=== PATIENT | male | born 1980 | race Caucasian/White ===

== ENCOUNTER 2021-03-29 09:59 | Emergency (ER) | payer OTHER, SELFPAY ==
--- NOTE | ~2021-03-29 | XR_ITS ---
EXAMINATION: XR chest 2V CLINICAL INFORMATION: Cough COMPARISON: No prior chest x-ray available in our system for comparison at the time of this dictation. TECHNIQUE: XR chest 2V Lungs and Xi: Both lungs are clear. Pleura: Normal. Costophrenic angles are sharp. No pneumothorax. Heart: The heart is normal in size. Mediastinum: The mediastinum is within normal limits.. Bones: Skeletal structures included are normal for patient's age. XR/XR chest 2V IMPRESSION: Normal chest x-ray.
[2021-03-29 10:30] LABS: COVID-19 Test Negative (Negative)
[2021-03-29 11:55] VITALS: BP 145/103; PULSE 75; RESP 18; TEMP 36.8; O2SAT 100; BMI 37.1
--- NOTE | 2021-03-29 12:08 | ED.URI ---
HPI - URI/Sore Throat General Chief Complaint: Upper Respiratory Symptoms Stated Complaint: flu symptons fever Time Seen by Provider: 03/29/21 11:59 Source: patient Mode of arrival: ambulatory Limitations: no limitations History of Present Illness HPI Narrative: 40 y/o male presenting to the ER from home c/o generalized fatigue, dry cough and pain with breathing for the last 3 or 4 days. He reports the pain is worse when coughing. The pain is located along his entire chest wall. He denies any fevers, shortness of breath, nausea, vomiting, or diarrhea. No known sick contacts. is fully vaccinated against COVID-19. He has been avoiding coming to the emergency room but his family encouraged him to come to the ER for evaluation. MD elicited complaint: cough Onset (ago): day(s) (For) Consistency: intermittent Severity: moderate Description of mucous: yellow Able to tolerate fluids by mouth: Yes Exacerbating factors: other (Worse at night) Relieving factors: OTC cold medicine Associated symptoms: headache, nasal congestion and cough Treatments prior to arrival: none Related Data Previous Rx's Medication Instructions Recorded azithromycin 250 mg tablet See Rx Instructions .ROUTE 03/29/21 (Zithromax Z-Darryl) .COMPLEX #6 tab hydrocodone-homatropine 5 mg-1.5 5 ml PO Q6H PRN #60 ml 03/29/21 mg/5 mL (5 mL) oral syrup (Hycodan) prednisone 20 mg tablet 40 mg PO DAILY #10 tab 03/29/21 Allergies Allergy/AdvReac Type Severity Reaction Status Date / Time No Known Allergies Allergy Verified 03/29/21 11:57 [No Known Allergies*] Review of Systems Review of Systems: Constitutional: No Fever, No Chills ENT/Mouth: No sore throat, No Rhinorrhea, No Swallowing Difficulty Cardiovascular: No Chest Pain, No SOB, No Orthopnea, No Edema Respiratory: + Cough, + Sputum, No Wheezing, No dyspnea Gastrointestinal: No Nausea, No Vomiting, No Diarrhea, No abdominal Pain Musculoskeletal: No joint pain, No Myalgias Skin: No Skin Lesions, No rash Neuro: + Weakness, No Numbness, No Dizziness, + Headache Heme/Lymph: No Lymphadenopathy PMFSH Past Medical History Medical History (Updated 03/29/21 @ 13:21 by SUZANNE Guerrero) No known health problems Social History Social History Advance Directives: No Advance Directives Information Provided: Yes Physical Exam Vital Signs: Vital Signs: Last Vital Signs Temp 98.3 F 03/29/21 11:55 Pulse 75 03/29/21 11:55 Resp 18 03/29/21 11:55 BP 145/103 H 03/29/21 11:55 Pulse Ox 100 03/29/21 11:55 Body Mass Index 37.1 Appearance: Alert. Oriented X3. No acute distress. Eyes: Pupils equal, round and reactive to light. ENT: Pharynx normal. No tonsillar exudates or swelling, uvula is midline. Clear nasal discharge. Neck: Normal inspection. Neck supple. CVS: Normal heart rate and rhythm. Pulses normal. Respiratory: No respiratory distress. Breath sounds normal. Congested cough is noted. Skin: Skin warm and dry. Normal skin color. Normal skin turgor. No rashes. Extremities: No lower extremity edema. No calf tenderness Neuro: Oriented X 3. Grossly normal Course Course Course Narrative: 40-year-old male presenting to the ER with cough with associated chest discomfort for the last 3 or 4 days. He has signs and symptoms of an upper respiratory tract infection. He is fully vaccinated against COVID. His vital signs are normal on exam is unremarkable. He is in no distress. Will get chest x-ray ankle itself for further evaluation Reevaluation(s) Reevaluation #1: And COVID test is negative. Will treat for acute bronchitis and have him follow-up with his primary care doctor. Patient agrees with plan and is stable for discharge home. MDM - URI/Sore Throat Lab Data Labs: Lab Results 03/29/21 Range/Units 10:11 COVID-19 ([facility]) Negative (Negative) COVID-19 Clin Com See Note Critical Care Time Critical Care Time Critical Care Time: No Discharge Plan Discharge Clinical Impression: Bronchitis Patient Disposition: Home, Self-Care Instructions: Acute Bronchitis (ED) Additional Instructions: You tested negative for COVID today. Chest x-ray was negative for pneumonia. Rest and drink plenty of fluids. Take over the counter cold/flu medications as needed for your symptoms. Follow up with your doctor this week. Prescriptions: New azithromycin [Zithromax Z-Darryl] 250 mg tablet See Rx Instructions .ROUTE .COMPLEX Qty: 6 RF: 0 prednisone 20 mg tablet 40 mg PO DAILY Qty: 10 RF: 0 hydrocodone-homatropine [Hycodan] 5-1.5 mg/5 mL (5 mL) syrup 5 ml PO Q6H PRN (Reason: cough) Qty: 60 RF: 0 Stand Alone Forms: Work/School Release Interventions: ED Discharge Assessment Last Done: 03/29/21 13:33 Discharge Date/Time: 03/29/21 13:33
== END 2021-03-29 13:33 | disposition home or self-care (01) ==
PROVIDERS: Emergency Provider Internal Medicine
DX: J20.8 Acute bronchitis due to other specified organisms (principal); R50.9 Fever, unspecified; Z20.822 Contact with and (suspected) exposure to COVID-19; Z79.899 Other long term (current) drug therapy
CPT/HCPCS: 36415; 71046; 87635; 99283

== ENCOUNTER 2021-05-25 17:49 | Emergency (ER) | payer MEDICAID, SELFPAY ==
--- NOTE | ~2021-05-25 | XR_ITS ---
EXAMINATION: XR CHEST CLINICAL INFORMATION: Cough COMPARISON: Chest x-ray 03/29/2021 TECHNIQUE: Frontal view of the chest was obtained. FINDINGS: Cardiac silhouette is normal in size. The lungs are well aerated. There is no lobar consolidation. No pleural effusion or pneumothorax. No gross osseous abnormality. XR/XR chest 1V IMPRESSION: Stable examination demonstrating no acute pulmonary pathology.
[2021-05-25 18:05] VITALS: BP 168/99; PULSE 88; RESP 18; TEMP 36.7; O2SAT 98; BMI 40.3
[2021-05-25 20:17] VITALS: BP 145/100; PULSE 78; RESP 18; TEMP 36.7; O2SAT 99
[2021-05-25 20:36] LABS: COVID-19 Test Negative (Negative); IDNOW Serial# 9DD0AD1C
--- NOTE | 2021-05-25 21:02 | ED_ITS ---
HPI - URI/Sore Throat General Chief Complaint: Upper Respiratory Symptoms Stated Complaint: flu like Source: patient Mode of arrival: ambulatory Limitations: no limitations History of Present Illness HPI Narrative: 40-year-old male presents to ED for COVID exposure and COVID like symptoms. Patient states cough, body aches, and chills the past 2 days. Patient states he was handling his friend 2 days ago called him today and let him know that he tested positive for COVID. Patient denies any chest pain or shortness of breath. MD elicited complaint: cough Related Data Previous Rx's Medication Instructions Recorded azithromycin 250 mg tablet See Rx Instructions .ROUTE 03/29/21 (Zithromax Z-Darryl) .COMPLEX #6 tab hydrocodone-homatropine 5 mg-1.5 5 ml PO Q6H PRN #60 ml 03/29/21 mg/5 mL (5 mL) oral syrup (Hycodan) prednisone 20 mg tablet 40 mg PO DAILY #10 tab 03/29/21 Allergies Allergy/AdvReac Type Severity Reaction Status Date / Time No Known Allergies Allergy Verified 05/25/21 18:04 [No Known Allergies*] Review of Systems Review of Systems: Yes all other systems are reviewed and are negative Constitutional: Constitutional: Reports as per HPI, Reports no additional constitutional complaints, Reports body ache(s) and Reports chills Eyes: Eyes: Reports as per HPI and Reports no additional eye complaints ENT: Reports system reviewed and no additional complaints, except as documented and Reports as per HPI Cardiovascular: Cardiovascular: Reports as per HPI and Reports no additional cardiovascular complaints Respiratory: Respiratory: Reports as per HPI, Reports no additional respiratory complaints and Reports cough Gastrointestinal: Gastrointestinal: Reports as per HPI and Reports no additional gastrointestinal complaints Genitourinary: Genitourinary: Reports no additional male genitourinary complaints and Reports as per HPI Musculoskeletal: Musculoskeletal: Reports no additional musculoskeletal complaints and Reports as per HPI Neurologic: Reports system reviewed and no additional complaints, except as documented and Reports as per HPI Psychiatric: Psychiatric: Reports no additional psychiatric complaints and Reports as per HPI [facility] Past Medical History Medical History (Updated 05/26/21 @ 00:02 by Background [place]) No known health problems Social History Social History Advance Directives: No Advance Directives Information Provided: Yes Physical Exam Vital Signs: Vital Signs: Last Vital Signs Temp 98.0 F 05/25/21 20:17 Pulse 78 05/25/21 20:17 Resp 18 05/25/21 20:17 BP 145/100 H 05/25/21 20:17 Pulse Ox 99 05/25/21 20:17 Body Mass Index 40.3 Const: General: cooperative, healthy appearing, comfortable and no acute distress Orientation/consciousness: patient oriented x3 HENMT: Head: Yes normal to inspection, Yes No palpable skull fracture present, Yes normocephalic, Yes atraumatic and No abrasion Ears: hearing grossly normal bilaterally, external ears normal, TM's normal bilaterally, EAC's normal, mastoids normal and no periauricular adenopathy Throat: Yes posterior oropharynx normal, Yes tonsils normal and Yes uvula midline Eyes: General: appearance normal, both eyes and all related structures Neck: Neck: Yes normal visual inspection, Yes full ROM, Yes no lymphadenopathy, Yes no meningeal signs, Yes trachea midline, Yes supple, No anterior neck swelling and No tender Chest: Chest palpation & inspection: normal inspection of the chest and normal palpation of entire chest wall Resp: Effort & Inspection: normal respiratory effort and able to speak in complete sentences Auscultation: clear to auscultation bilaterally Cardio: Jugular venous distension: no JVD Heart sounds: S1 normal heart sound present and S2 normal heart sound present GI: Inspection: Yes normal to inspection and No abdominal wall ecchymosis Palpation (GI): Soft to palpation, not firm, nontender, no guarding and not rigid : General: No CVA tenderness and Yes no CVA tenderness Back/Spine/Pelvis: Back: no CVA tenderness, No CVA tenderness and No back tenderness Skin: General skin exam: no rashes or lesions noted and elasticity normal Neuro: General: patient oriented x3, gait normal, no meningeal signs and CN's II-XI intact bilaterally Cranial nerves: Yes CN's II-XII intact bilaterally Extrem: General: Yes normal to inspection and Yes full ROM Psych: Appearance: grossly normal, well kempt and not disheveled Course Course Course Narrative: COVID swab chest x-ray ordered Reevaluation(s) Reevaluation #1: COVID chest x-ray came back normal. Patient informed of his elevated blood pressure and told to follow-up with his primary care provider to follow-up on his blood pressure. Time: 21:23 MDM - URI/Sore Throat MDM Narrative Medical decision making narrative: URI. Viral syndrome Lab Data Labs: Lab Results 05/25/21 Range/Units 20:15 COVID-19 ([facility]) Negative (Negative) COVID-19 Clin Com See Note Discharge Plan Discharge Clinical Impression: Upper respiratory infection, Viral syndrome Patient Disposition: Home, Self-Care Instructions: Upper Respiratory Infection (ED), Viral Syndrome (ED) Additional Instructions: Your COVID swab came back negative. This may be a false negative due to recent exposure. Recommend retesting in 72 hours if symptoms are not improved. Return to the ED immediately for any chest pain, shortness of breath, swelling of lower extremities, coughing up blood, calf pain, weakness, dizziness, or any other concerning symptoms. Please follow-up with primary care provider Prescriptions: No Action azithromycin [Zithromax Z-Darryl] 250 mg tablet See Rx Instructions .ROUTE .COMPLEX Qty: 6 RF: 0 prednisone 20 mg tablet 40 mg PO DAILY Qty: 10 RF: 0 hydrocodone-homatropine [Hycodan] 5-1.5 mg/5 mL (5 mL) syrup 5 ml PO Q6H PRN (Reason: cough) Qty: 60 RF: 0 Stand Alone Forms: Work/School Release Interventions: ED Discharge Assessment Last Done: 05/25/21 21:35 Discharge Date/Time: 05/25/21 21:37 Print Language: Sammarinese
== END 2021-05-25 21:37 | disposition home or self-care (01) ==
PROVIDERS: Emergency Provider Emergency Medicine
DX: B34.9 Viral infection, unspecified (principal); M79.10 Myalgia, unspecified site; J06.9 Acute upper respiratory infection, unspecified; Z20.822 Contact with and (suspected) exposure to COVID-19; Z79.899 Other long term (current) drug therapy
CPT/HCPCS: 36415; 71045; 87635; 99283; 99284

== ENCOUNTER 2021-07-12 08:50 | Emergency (ER) | payer MEDICAID, SELFPAY ==
[2021-07-12 09:12] VITALS: BP 153/108; PULSE 84; RESP 16; TEMP 36.1; O2SAT 98; BMI 39.5
--- NOTE | 2021-07-12 09:19 | ED.URI ---
HPI - URI/Sore Throat General Chief Complaint: Upper Respiratory Symptoms Stated Complaint: covid symptoms Time Seen by Provider: 07/12/21 09:02 Source: patient Mode of arrival: ambulatory Limitations: no limitations History of Present Illness HPI Narrative: 40-year-old male presents to the emergency department with COVID like symptom experiencing body aches, dry cough with associated chest wall pain when coughing, congestion malaise subjective fevers and chills since this morning. He tells me he has chest discomfort only when he coughs, not when he is not coughing. He tells me both of his daughters are sick with COVID at home. He is a current daily smoker. He is vaccinated with Pfizer x3.?Denies SOB, CP, BEAULIEU, weakness. Eating and drinking well. In good spirits. No other complaints at this time. Patient has no significant cardiac history. MD elicited complaint: fever (Subjective), cough (Dry), sore throat and nasal congestion Onset (ago): day(s) (1) Consistency: constant Severity: mild Able to tolerate fluids by mouth: Yes Exacerbating factors: nothing Relieving factors: nothing Context: sick contacts (Two daughters sick at home with COVID-19.) Associated symptoms: fever, chills, myalgias, sore throat and cough Treatments prior to arrival: none Related Data Previous Rx's Medication Instructions Recorded azithromycin 250 mg tablet See Rx Instructions .ROUTE 03/29/21 (Zithromax Z-Darryl) .COMPLEX #6 tab hydrocodone-homatropine 5 mg-1.5 5 ml PO Q6H PRN #60 ml 03/29/21 mg/5 mL (5 mL) oral syrup (Hycodan) prednisone 20 mg tablet 40 mg PO DAILY #10 tab 03/29/21 benzonatate 100 mg capsule 100 mg PO BID PRN #20 cap 07/12/21 Allergies Allergy/AdvReac Type Severity Reaction Status Date / Time No Known Allergies Allergy Verified 05/25/21 18:04 [No Known Allergies*] Review of Systems Review of Systems: Constitutional : positive Fever, positive Chills, positive fatigue, positive Malaise ENT/Mouth : positive sore throat, No runny nose Eyes: No Discharge Cardiovascular : No Chest Pain, No SOB Respiratory : No Cough, No Sputum Gastrointestinal : No Nausea, No Vomiting, No Diarrhea Genitourinary : No Dysuria, No Urinary Frequency Musculoskeletal : positive Myalgia Skin : No rash Neuro : No Headache Yes all other systems are reviewed and are negative [facility] Past Medical History Attestation statement: The following information was validated with the patient. Source: old records reviewed and nursing notes reviewed Medical History No known health problems Physical Exam Vital Signs: Vital Signs: Last Vital Signs Temp 97 F 07/12/21 09:12 Pulse 84 07/12/21 09:12 Resp 16 07/12/21 09:12 BP 153/108 H 07/12/21 09:12 Pulse Ox 98 07/12/21 09:12 BMI result Body Mass Index 39.5 Patient is noted to be hypertensive. I discussed this finding with the patient and told him to follow-up with his PCP all other vitals signs stable saturating well on room air. Appearance: Alert.? Oriented X3.? No acute distress.? Head: Normocephalic, atraumatic, no step-offs or deformities Eyes: Pupils equal, round and reactive to light.? Neck: Normal inspection.? Neck supple.? CVS: Normal heart rate and rhythm.? Pulses normal.? Respiratory: No respiratory distress.? Breath sounds normal.? Abdomen: Soft and nontender.? Skin: Skin warm and dry.? Normal skin color.? Normal skin turgor.? Extremities: No lower extremity edema.? No calf ttp. 5/5 strength to bilateral upper and lower extremities Neuro: Oriented X 3.? No motor deficit.? No sensory deficit. Course Reevaluation(s) Reevaluation #1: Patient is noted to be COVID negative. However, since everyone at home is sick it is likely too soon to test. I have advised patient to get retested in 2-4 days. I have also told him to treat this as if he were positive and to self isolate, social distance and clean thoroughly. Vital signs are stable.? I have given patient strict return precautions.? I have educated on diagnosis and treatment plan.? I have given them red flag symptoms and have told him to return with new or worsening symptoms.? I have outlined these on their discharge. Unlikely that this is ACS, patient denies chest pain, normal EKG. Lungs are clear unlikely pneumonia patient also doesnt have a productive cough. Patient's vital signs stable, patient is not tachycardic, tachypneic or hypoxic, no calf tenderness to palpation, unlikely PE. Time: 09:52 MDM - URI/Sore Throat MDM Narrative Medical decision making narrative: 921 40 yo M presents with COVID like symptoms. Requesting an test. Daughters at home sick. Vaccinated with Pfizer x3. Current daily smoker. No significant medical history. Physical exam benign Plan COVID test Medical Records Attestation: I reviewed the patient's medical records. Lab Data Attestation: I reviewed the patient's lab results. Labs: Lab Results 07/12/21 Range/Units 09:16 COVID-19 ([facility]) Negative (Negative) COVID-19 Clin Com See Note ECG Data Attestation: I personally reviewed and interpreted this ECG as follows: ECG interpretation date: 07/12/21 ECG interpretation time: 10:01 Prior ECG tracings: available for review Interpretation: Ventricular rate of 74, KS normal, QRS normal, QT/QTC normal. EKG shows sinus rhythm with marked arrhythmia. No ST elevations or inversions concerning for ischemia. No previous EKGs to compare with. Critical Care Time Critical Care Time Critical Care Time: No Discharge Plan Discharge Clinical Impression: Upper respiratory virus Patient Disposition: Home, Self-Care Instructions: COVID-19 (Coronavirus Disease 2019) (ED) Additional Instructions: Take your medications as prescribed. If you were prescribed antibiotics today, it is important that you take your medication to their entirety, do not skip any doses, do not finish them early. Today you tested negative for COVID-19, however since her symptoms started this morning it is likely that the test is not sensitive enough to catch the virus this early on. Take Ibuprofen or Tylenol as needed for fevers or body aches. Quarantine for 5 days and ensure you wear a mask. After 5 days you should wear a mask for 5 days after that. Practice social distancing and good hand hygiene. Drink plenty of fluids. If you want, you can retest in 2-4 days. Follow-up with your primary care provider this week. Return to the emergency department with new or worsening symptoms. In case of emergency call 911 You can purchase a pulse oximeter from your local pharmacy or grocery store, and monitor your oxygen saturation if it goes below 94% you should return to the emergency department for further evaluation. Prescriptions: New benzonatate 100 mg capsule 100 mg PO BID PRN (Reason: cough) Qty: 20 RF: 0 No Action azithromycin [Zithromax Z-Darryl] 250 mg tablet See Rx Instructions .ROUTE .COMPLEX Qty: 6 RF: 0 prednisone 20 mg tablet 40 mg PO DAILY Qty: 10 RF: 0 hydrocodone-homatropine [Hycodan] 5-1.5 mg/5 mL (5 mL) syrup 5 ml PO Q6H PRN (Reason: cough) Qty: 60 RF: 0 Referrals: Physician,None [Primary Care Provider] - 2 days Stand Alone Forms: Work/School Release
[2021-07-12 09:41] LABS: COVID-19 Test Negative (Negative)
--- NOTE | 2021-07-12 09:51 | ECG_ITS ---
Test Reason : chest tightness Blood Pressure : / mmHG Vent. Rate : 074 BPM Atrial Rate : 074 BPM P-R Int : 158 ms QRS Dur : 098 ms QT Int : 394 ms P-R-T Axes : 056 026 047 degrees QTc Int : 437 ms Sinus rhythm with marked sinus arrhythmia Otherwise normal ECG No previous ECGs available Referred By: Neisha Angeles Electronically Signed By:Ashu Ruvalcaba
== END 2021-07-12 10:06 | disposition home or self-care (01) ==
LOC: HO.ED 10:02
PROVIDERS: Physician Assistant; Emergency Provider Emergency Medicine
DX: J06.9 Acute upper respiratory infection, unspecified (principal); M79.10 Myalgia, unspecified site; R05.9 Cough, unspecified; R07.89 Other chest pain; R50.9 Fever, unspecified; Z20.822 Contact with and (suspected) exposure to COVID-19
CPT/HCPCS: 87635; 93005; 99284

== ENCOUNTER 2021-07-15 09:37 | Outpatient (REF) | payer MEDICAID, SELFPAY ==
[2021-07-15 10:02] LABS: COVID-19 Test Negative (Negative)
== END 2021-07-15 09:38 | disposition home or self-care (01) ==
LOC: HO.LAB 09:37
PROVIDERS: Visit Provider Internal Medicine
DX: Z20.822 Contact with and (suspected) exposure to COVID-19 (principal)
CPT/HCPCS: 87635; C9803

== ENCOUNTER 2021-12-17 06:50 | Emergency (ER) | payer MEDICAID, SELFPAY ==
--- NOTE | ~2021-12-17 | CT_ITS ---
EXAMINATION: CT CERVICAL SPINE WITHOUT CONTRAST CLINICAL INFORMATION: Neck pain status post trauma. COMPARISON: None TECHNIQUE: Multiple axial images of the cervical spine were obtained without the administration of intravenous contrast. Coronal and sagittal reformatted images were obtained. This CT examination was performed using dose optimization techniques as appropriate, variously including the following: *Automated exposure control *Adjustment of mA and/or kV according to patient size (this includes techniques or standardized protocols for targeted exams where dose is matched to indication/reason for exam; i.e. extremities or head) *Use of iterative reconstruction technique DLP: 724.86 mGy-cm FINDINGS: There is normal cervical lordosis and spinal alignment. Mild degenerative disc disease is seen in C6-C7. The vertebral bodies are intact. The neural foramina are patent. The facet joints are unremarkable. The spinous processes are intact. The odontoid process is intact with mild articular degenerative changes. The soft tissues are unremarkable. There is no lymphadenopathy. The thyroid gland is unremarkable. The visualized lung apices are clear. CT/CT cervical spine wo con IMPRESSION: 1. No acute abnormality. 2. C6-C7 mild degenerative disc disease. Fleischner guidelines were followed.
--- NOTE | ~2021-12-17 | CT_ITS ---
EXAMINATION: CT HEAD WITHOUT CONTRAST CLINICAL INFORMATION: Head pain status post trauma. COMPARISON: None TECHNIQUE: Contiguous axial imaging was performed from the skull base to vertex without intravenous administration of contrast. Coronal and sagittal reformatted images were obtained. This CT examination was performed using dose optimization techniques as appropriate, variously including the following: *Automated exposure control *Adjustment of mA and/or kV according to patient size (this includes techniques or standardized protocols for targeted exams where dose is matched to indication/reason for exam; i.e. extremities or head) *Use of iterative reconstruction technique DLP: 762.82 mGy-cm FINDINGS: Encephalomalacia seen in the left frontal lobe in the distribution of the left anterior cerebral artery without hemorrhagic component. There is no mass effect or midline shift. The cortical sulci are normal. The lateral ventricles are symmetrical. The third and fourth ventricles are in their normal midline position. The basilar and prepontine cisterns are unremarkable. Sections through the bony calvarium are unremarkable. The paranasal sinuses show mild mucosal thickening anteromedially in the right maxillary sinus. This partially occludes the right ostiomeatal complex. The bony orbits and orbital contents are unremarkable. Mild deformity seen in the right nasal bone. Mild anterior nasal septal deviation, apex to the right is seen. 1. 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 Correlate with patient history and possible associated deficits. If the patient is presenting acute symptoms, MRI should be considered. 2. Deformity in the right nasal bone suggests an acute nondisplaced fracture. Mild mucosal thickening in the subjacent right maxillary sinus is seen without definitive associated fracture. This could be reactive to the trauma given the proximity.
[2021-12-17 07:05] VITALS: BP 151/97; PULSE 80; RESP 16; TEMP 36.5; O2SAT 97; BMI 35.2
--- NOTE | 2021-12-17 08:10 | ED_ITS ---
HPI - Head Injury General Chief complaint: Head Injury Stated complaint: work inj, head lac Time Seen by Provider: 12/17/21 08:09 Source: patient Mode of arrival: ambulatory History of Present Illness HPI Narrative: 40-year-old male with unknown last tetanus shot who was struck in the right side of the head with a Pallet while at work without loss of consciousness. The patient otherwise denies any visual/auditory/speech difficulties. Related Data Previous Rx's Medication Instructions Recorded azithromycin 250 mg tablet See Rx Instructions PO .COMPLEX #6 03/29/21 (Zithromax Z-Darryl) tabs hydrocodone-homatropine 5 mg-1.5 5 ml PO Q6H PRN cough #60 mL 03/29/21 mg/5 mL (5 mL) oral syrup (Hycodan) prednisone 20 mg tablet 40 mg PO DAILY #10 tabs 03/29/21 benzonatate 100 mg capsule 100 mg PO BID PRN cough #20 caps 07/12/21 Allergies Allergy/AdvReac Type Severity Reaction Status Date / Time No Known Allergies Allergy Verified 05/25/21 18:04 [No Known Allergies*] Review of Systems Review of Systems: Pertinent positives and negatives as stated in HPI 10 point review of systems is otherwise negative. PMFSH Past Medical History Source: nursing notes reviewed Medical History No known health problems Social History Social History Advance Directives: No Advance Directives Information Provided: No Physical Exam Vital Signs: Vital Signs: Last Vital Signs Temp 97.7 F 12/17/21 07:05 Pulse 80 12/17/21 07:05 Resp 16 12/17/21 07:05 BP 151/97 H 12/17/21 07:05 Pulse Ox 97 12/17/21 07:05 O2 Del Method 12/17/21 07:05 BMI result Body Mass Index 35.2 VITAL SIGNS: Reviewed. GENERAL: Well developed, well nourished, in no acute distress. HEAD: Normocephalic/3cm linear superficial scalp laceration to the right parietal EYES: PERRLA, EOMI EARS: Ext canals without abnormality OROPHARYNX: no oral lesions noted, posterior pharynx clear LUNGS: Normal breath sounds. No adventitious sounds or accessory muscle use. SpO2<97> CARDIOVASCULAR: Regular rate and rhythm without noted murmurs ABDOMEN: Soft, non-tender, non-distended with bowel sounds. MUSCULOSKELETAL: No tenderness, deformities, or effusions noted on gross inspection. EXTREMITIES: No cyanosis, clubbing or edema. SKIN: Inspection of the skin reveals no rashes NEUROLOGIC: Alert and oriented x 4. Strength and sensation to light touch were grossly intact x 4. Course Course Course Narrative: 40-year-old male with history and clinical presentation consistent with being struck in the head at work without loss of consciousness, patient will receive CT of the head/cervical spine as well as a tetanus shot and get etta for the scalp laceration. Patient received 3 etta with good hemostasis and was discharged home in stable condition. Procedures Laceration Laceration 1: Site: scalp Side (If applicable): right Size (cm): 3 Description: linear Depth: simple, single layer Pre-repair: wound explored, irrigated extensively and deep structures intact Discharge Plan Discharge Clinical Impression: Closed head injury, Laceration of scalp Patient Disposition: Home, Self-Care Instructions: Head Injury (ED), Laceration (ED), Staple Care (ED) Additional Instructions: 1. Remove the etta in 7 days. May gently cleanse with soap and water and then dry. 2. Recommend [id number] Tylenol/ibuprofen as needed for pain control. 3. Follow-up with your primary care provider in the next 2-3 days for re- evaluation. Return to the ER for any worsening symptoms. Prescriptions: No Action benzonatate 100 mg capsule 100 mg PO BID PRN (Reason: cough) Qty: 20 0RF azithromycin [Zithromax Z-Darryl] 250 mg tablet See Rx Instructions .ROUTE .COMPLEX Qty: 6 0RF Rx Instructions: take 500 mg today (day 1), then 250 mg for 4 days (days 2-5) prednisone 20 mg tablet 40 mg PO DAILY Qty: 10 0RF hydrocodone-homatropine [Hycodan] 5-1.5 mg/5 mL (5 mL) syrup 5 ml PO Q6H PRN (Reason: cough) Qty: 60 0RF Stand Alone Forms: Work/School Release
[2021-12-17] MEDS: Acetaminophen 325 MG TABLET 975 MG PO (08:27)
[2021-12-17] MEDS: Diphth,Pertus(ACell),Tet Adult 0.5 ML SYRINGE IM (08:28)
[2021-12-17] MEDS: Ketorolac Tromethamine 15 MG/ML VIAL IM (08:28)
== END 2021-12-17 09:31 | disposition home or self-care (01) ==
PROVIDERS: Emergency Provider Student in an Organized Health Care Education/Training Program
DX: S01.01XA Laceration without foreign body of scalp, initial encounter (principal); S09.90XA Unspecified injury of head, initial encounter; W22.8XXA Striking against or struck by other objects, initial encounter; Y93.9 Activity, unspecified; Y92.9 Unspecified place or not applicable; Y99.0 Civilian activity done for income or pay
CPT/HCPCS: 12002; 70450; 72125; 90471; 90715; 96372; 99283; 99284; J1885

== ENCOUNTER 2021-12-23 16:49 | Emergency (ER) | payer MEDICAID, SELFPAY ==
[2021-12-23 16:53] VITALS: BP 142/93; PULSE 92; RESP 17; TEMP 36.3; O2SAT 98; BMI 34.4
--- NOTE | 2021-12-23 17:09 | ED.GENADULT ---
HPI - General Adult General Chief complaint: General Medical Stated complaint: need etta removed from head Time Seen by Provider: 12/23/21 17:03 Related Data Previous Rx's Medication Instructions Recorded azithromycin 250 mg tablet See Rx Instructions PO .COMPLEX #6 03/29/21 (Zithromax Z-Darryl) tabs hydrocodone-homatropine 5 mg-1.5 5 ml PO Q6H PRN cough #60 mL 03/29/21 mg/5 mL (5 mL) oral syrup (Hycodan) prednisone 20 mg tablet 40 mg PO DAILY #10 tabs 03/29/21 benzonatate 100 mg capsule 100 mg PO BID PRN cough #20 caps 07/12/21 Allergies Allergy/AdvReac Type Severity Reaction Status Date / Time No Known Allergies Allergy Verified 05/25/21 18:04 [No Known Allergies*] PMFSH Past Medical History Medical History No known health problems Social History Social History Advance Directives: No Advance Directives Information Provided: No Physical Exam ED Vital Signs: Vital Signs - 24 hr 12/23/21 16:53 Temperature 97.3 F Pulse Rate 92 Respiratory Rate 17 Blood Pressure 142/93 H Pulse Oximetry 98 Oxygen Delivery Method Room Air BMI result Body Mass Index 34.4 Discharge Plan Discharge Clinical Impression: Encounter for removal of etta Patient Disposition: Home, Self-Care Instructions: Stitches Removal (ED) Prescriptions: No Action benzonatate 100 mg capsule 100 mg PO BID PRN (Reason: cough) Qty: 20 0RF azithromycin [Zithromax Z-Darryl] 250 mg tablet See Rx Instructions .ROUTE .COMPLEX Qty: 6 0RF Rx Instructions: take 500 mg today (day 1), then 250 mg for 4 days (days 2-5) prednisone 20 mg tablet 40 mg PO DAILY Qty: 10 0RF hydrocodone-homatropine [Hycodan] 5-1.5 mg/5 mL (5 mL) syrup 5 ml PO Q6H PRN (Reason: cough) Qty: 60 0RF Referrals: Son Granado MD [Primary Care Provider] - 1 week
--- NOTE | 2021-12-23 17:12 | ED.RECABL ---
HPI - Recheck/Abnormal Lab/Rx General Chief Complaint: General Medical Stated Complaint: need etta removed from head Time Seen by Provider: 12/23/21 17:03 Source: patient Mode of arrival: ambulatory Limitations: no limitations History of Present Illness MD complaint: suture/staple removal Initial visit (ago): day(s) (6) Initial visit for: laceration Returns today for: staple/stitch removal Symptoms since prior visit: no new symptoms Context: planned re-check Associated symptoms: none Related Data Previous Rx's Medication Instructions Recorded azithromycin 250 mg tablet See Rx Instructions PO .COMPLEX #6 03/29/21 (Zithromax Z-Darryl) tabs hydrocodone-homatropine 5 mg-1.5 5 ml PO Q6H PRN cough #60 mL 03/29/21 mg/5 mL (5 mL) oral syrup (Hycodan) prednisone 20 mg tablet 40 mg PO DAILY #10 tabs 03/29/21 benzonatate 100 mg capsule 100 mg PO BID PRN cough #20 caps 07/12/21 Allergies Allergy/AdvReac Type Severity Reaction Status Date / Time No Known Allergies Allergy Verified 05/25/21 18:04 [No Known Allergies*] Review of Systems Review of Systems: Constitutional : No Fever, No Chills, Cardiovascular : No Chest Pain, No SOB Respiratory : No Dyspnea Gastrointestinal : No abdominal pain Musculoskeletal : No Joint Swelling Skin : positive healed skin laceration, no new skin laceration, No Foreign bodies, No rash, No surrounding erythema Neuro : No Weakness, No Numbness/tingling Psych : No SI/HI/thoughts of self injury Yes all other systems are reviewed and are negative [facility] Past Medical History Attestation statement: The following information was validated with the patient. Source: old records reviewed, obtained from family and nursing notes reviewed Medical History No known health problems Social History Social History Advance Directives: No Advance Directives Information Provided: No Physical Exam Vital Signs: Vital Signs: Last Vital Signs Temp 97.3 F 12/23/21 16:53 Pulse 92 12/23/21 16:53 Resp 17 12/23/21 16:53 BP 142/93 H 12/23/21 16:53 Pulse Ox 98 12/23/21 16:53 O2 Del Method 12/23/21 16:53 BMI result Body Mass Index 34.4 vital signs have been reviewed as normal and appeared to be correct. Blood pressure normal Heart rate normal. Respiration rate normal. Temperature normal. Oxygen saturation normal. Appearance: Alert. Oriented X3. No acute distress. Head: Normal external exam. Normocephalic. Atraumatic. Patient with [address] to right side of the head to well-healing wound. No surrounding erythema/fluctuance or signs of infection noted. Eyes: PERRLA. EOMI. Conjunctiva and sclera normal. Eyelids normal. ENT: Pharynx normal. Uvula midline. Moist mucous membranes. Neck: Normal inspection. Neck supple. FROM. CVS: Normal heart rate and rhythm. Respiratory: No respiratory distress. Painless inspiration. Skin: Skin warm and dry. Normal skin color. Normal skin turgor. No rashes/lesions/lacerations noted. Extremities: No lower extremity edema. Extremities exhibit normal range of motion. Extremities nontender. Neuro: Oriented X 3. No motor deficit. No sensory deficit. Reflexes normal. Normal steady gait. No focal neuro deficits noted. Vascular: + radial pulses/+ 2 distal pedal pulses/+2 dorsalis pedis b/l. Normal cap refill. No cyanosis noted to upper extremity nails and lower extremity toes nails. Course Course Course Narrative: Patient now status post staple removal 3 etta were removed. Patient tolerated procedure well. No complications. Will DC home instructions return if any new or worsening symptoms follow up with primary care provider. Patient understands agrees with this plan. MDM - Recheck/Abnormal Lab/Rx Medical Records Attestation: I reviewed the patient's medical records. Discharge Plan Discharge Clinical Impression: Encounter for removal of etta Patient Disposition: Home, Self-Care Instructions: Stitches Removal (ED) Prescriptions: No Action benzonatate 100 mg capsule 100 mg PO BID PRN (Reason: cough) Qty: 20 0RF azithromycin [Zithromax Z-Darryl] 250 mg tablet See Rx Instructions .ROUTE .COMPLEX Qty: 6 0RF Rx Instructions: take 500 mg today (day 1), then 250 mg for 4 days (days 2-5) prednisone 20 mg tablet 40 mg PO DAILY Qty: 10 0RF hydrocodone-homatropine [Hycodan] 5-1.5 mg/5 mL (5 mL) syrup 5 ml PO Q6H PRN (Reason: cough) Qty: 60 0RF Referrals: Son Granado MD [Primary Care Provider] - 1 week
== END 2021-12-23 17:18 | disposition home or self-care (01) ==
PROVIDERS: Emergency Provider Emergency Medicine
DX: Z48.02 Encounter for removal of sutures (principal); S01.91XD Laceration without foreign body of unspecified part of head, subsequent encounter; X58.XXXD Exposure to other specified factors, subsequent encounter
CPT/HCPCS: 99282; 99283

== ENCOUNTER 2022-01-16 12:50 | Emergency (ER) | payer MEDICAID, SELFPAY ==
--- NOTE | 2022-01-16 | ECG_ITS ---
Test Reason : CHEST PAIN Blood Pressure : / mmHG Vent. Rate : 075 BPM Atrial Rate : 075 BPM P-R Int : 164 ms QRS Dur : 098 ms QT Int : 380 ms P-R-T Axes : 059 039 043 degrees QTc Int : 424 ms Normal sinus rhythm with sinus arrhythmia Normal ECG When compared with ECG of 12-JUL-2021 09:55, No significant change was found Referred By: Generic ED Physician Electronically Signed By:Ashu Ruvalcaba
--- NOTE | ~2022-01-16 | CT_ITS ---
EXAMINATION: CT HEAD WITHOUT CONTRAST CLINICAL INFORMATION: Headache. Dizziness. COMPARISON: CT head 12/17/2021 TECHNIQUE: Contiguous axial imaging was performed from the skull base to vertex without intravenous administration of contrast. This CT examination was performed using dose optimization techniques as appropriate, variously including the following: *Automated exposure control *Adjustment of mA and/or kV according to patient size (this includes techniques or standardized protocols for targeted exams where dose is matched to indication/reason for exam; i.e. extremities or head) *Use of iterative reconstruction technique DLP: 708 mGy-cm FINDINGS: There is no evidence of acute intracranial hemorrhage or territorial infarction. No abnormal mass effect or midline shift is seen. Ignacio to white matter differentiation is well preserved. No extra-axial fluid collections are identified. The ventricles are normal in size. 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 The osseous structures and soft tissues are normal. The mastoid air cells and visualized portions of the paranasal sinuses are well aerated. Minimal right nasal bone deformity is redemonstrated. CT/CT head/brain wo con IMPRESSION: No acute intracranial pathology.
--- NOTE | ~2022-01-16 | XR_ITS ---
EXAMINATION: XR CHEST CLINICAL INFORMATION: Shortness of breath COMPARISON: 05/25/2021 TECHNIQUE: 2 views of the chest were obtained. FINDINGS: No significant abnormality is noted involving the heart, lungs, mediastinum, bony thorax or soft tissues. XR/XR chest 2V IMPRESSION: Unremarkable examination.
[2022-01-16 12:53] VITALS: BP 151/108; PULSE 82; RESP 18; TEMP 35.7; O2SAT 98; BMI 34.4
--- NOTE | 2022-01-16 13:26 | ED_ITS ---
HPI - Chest Pain General Chief Complaint: Chest Pain Stated Complaint: Chest Pain High Blood Pressure Time Seen by Provider: 01/16/22 13:25 Source: patient Mode of arrival: ambulatory Limitations: no limitations History of Present Illness HPI narrative: Patient is a 41 year old male presenting to the emergency department today with a headache and chest pain. Patient states that over the last couple of days he has had a headache and felt some chest heaviness. Patient states that he is concerned that his blood pressure is elevated. Patient states that his work place has been very stressful and he would like some time off from there. Patient denies any current dizziness, lightheadedness, abdominal pain, nausea, vomiting, fever, chills, blurry vision, double vision, loss of vision, chest pain, difficulty breathing, shortness of breath, back pain, night sweats, pain with urination, increased urinary frequency, increased urinary urgency, blood in his urine or stool, syncope or a near syncopal episode, recent trauma or falls, bowel incontinence, bladder incontinence, bowel retention, bladder retention, or any other complaints at this time. MD complaint: chest pain Onset (ago): day(s) (2) Pain radiation: none Pain scale (0-10): 0 Relieving factors: nothing Exacerbating factors: nothing Treatment prior to arrival: none Risk Factors Coronary artery disease risk factors: none Thoracic aortic dissection risk factors: none Related Data Previous Rx's Medication Instructions Recorded azithromycin 250 mg tablet See Rx Instructions PO .COMPLEX #6 03/29/21 (Zithromax Z-Darryl) tabs hydrocodone-homatropine 5 mg-1.5 5 ml PO Q6H PRN cough #60 mL 03/29/21 mg/5 mL (5 mL) oral syrup (Hycodan) prednisone 20 mg tablet 40 mg PO DAILY #10 tabs 03/29/21 benzonatate 100 mg capsule 100 mg PO BID PRN cough #20 caps 07/12/21 Allergies Allergy/AdvReac Type Severity Reaction Status Date / Time No Known Allergies Allergy Verified 01/16/22 12:55 [No Known Allergies*] Review of Systems Constitutional: Constitutional: Reports no additional constitutional complaints, Denies chills, Denies fever(s), Reports headache(s) and Denies night sweats Eyes: Eyes: Reports no additional eye complaints, Denies blurry vision, Denies change in vision, Denies diplopia, Denies eye discharge, Denies loss of vision and Denies eye pain ENT: Denies dizziness and Reports headache(s) Cardiovascular: Cardiovascular: Reports no additional cardiovascular complaints, Denies chest pain, Denies lightheadedness, Denies Loss of Cons ciousness and Denies dyspnea Respiratory: Respiratory: Reports no additional respiratory complaints and Denies dyspnea Gastrointestinal: Gastrointestinal: Reports no additional gastrointestinal complaints, Denies abdominal pain, Denies melena, Denies hematochezia, Denies change in bowel habits and Denies change in stool character Genitourinary: Genitourinary: Reports no additional male genitourinary complaints, Denies hematuria, Denies oliguria, Denies difficulty urinating, Denies dysuria, Denies urinary frequency, Denies urinary hesitancy, Denies urinary incontinence and Denies urinary urgency Musculoskeletal: Musculoskeletal: Reports no additional musculoskeletal complaints, Denies numbness and Denies tingling Neurologic: Denies dizziness, Reports headache(s), Denies loss of vision, Denies numbness and Denies tingling Psychiatric: Psychiatric: Reports no additional psychiatric complaints Endocrine: Endocrine: Reports no additional endocrine complaints Hematologic/Lymphatic: Hematologic/Lymphatic: Reports no additional hematologic/lymphatic complaints Allergic/Immunologic: Allergic/Immunologic: Reports no additional all ergic/immunologic complaints [facility] Past Medical History Attestation statement: The following information was validated with the patient. Source: old records reviewed Medical History No known health problems Social History Social History Alcohol intake: current Alcohol intake frequency: a few times a month Alcohol type: beer and hard liquor Patient Tobacco Use Status: Current everyday Tobacco user Use of substances other than those prescribed or required for medical reasons: No Advance Directives: Yes Advance Directives on File: Yes Advance Directives Date on File: 01/16/22 Physical Exam Vital Signs: Vital Signs: Last Vital Signs Temp 97.7 F 01/16/22 17:00 Pulse 71 01/16/22 17:00 Resp 18 01/16/22 17:00 BP 151/96 H 01/16/22 17:00 Pulse Ox 98 01/16/22 17:00 O2 Del Method 01/16/22 17:00 BMI result Body Mass Index 34.4 Const: General: cooperative, no acute distress, alert and awake Nutritional Appearance: well nourished Orientation/consciousness: patient oriented x3 Limitations: no limitations HEENT: Head: Yes normal to inspection and Yes atraumatic Ears: hearing grossly normal bilaterally and external ears normal General nose exam: Normal external nose present, no nasal discharge noted and no epistaxis Face and sinus: Yes normal facial exam, No abrasion and No laceration Mouth: Normal oral and palatal mucosa present, no drooling and no muffled voice Eyes: General: appearance normal, both eyes and all related structures Periorbital: periorbital findings normal Eyelids: Yes eyelids normal Conjunctivae: conjunctivae normal Pupils: Equal, round and reactive pupils present EOM: EOMs intact bilaterally Neck: Neck: Yes normal visual inspection, Yes full ROM and Yes no lymphadenopathy Chest: Chest palpation & inspection: normal inspection of the chest Resp: Effort & Inspection: normal respiratory effort and able to speak in complete sentences Auscultation: clear to auscultation bilaterally Cardio: Rate: regular rate Rhythm: regular rhythm GI: Inspection: Yes normal to inspection Neuro: General: patient oriented x3 and moves all extremities Cranial nerves: Yes Equal, round and reactive pupils present Cognition (Neuro): normal cognition Motor exam (neuro): 5/5 motor strength present throughout Sensory Exam: Normal double simultaneous stimulation for sensation Coordi nation: [id number] test normal Extrem: General: Yes normal to inspection, Yes full ROM and Yes capillary refill normal Psych: Appearance: grossly normal Mental Status: mental status grossly normal Affect: normal affect Attitude: cooperative Thought process: Normal thought process present Thought content: Normal thought content present Insight: Good insight present (Psych) MDM - Chest Pain MDM Narrative Medical decision making narrative: Patient is a 41 year old male presenting to the emergency department today with a headache and resolved chest pain. Patient's physical exam was unremarkable. Patient's blood work was unremarkable. Patient's EKG was unremarkable. Patient's chest x-ray and patient's head CT showed no acute process. I explained my physical exam findings as well as all test results to the patient. I answered all questions asked by the patient. Patient received IM Toradol which he stated helped his symptoms significantly. I stressed the importance of the patient taking his medication as prescribed. I stressed the importance of the patient following up with his primary care provider. I stressed the importance of the patient returning to the emergency department immediately if his symptoms were to worsen or if he were to develop any dizziness, shortness of breath, difficulty breathing, chest pain, blurry vision, loss of vision, nausea, vomiting, abdominal pain, fever, chills, back pain, or any other complaints. Patient verbalized agreement and understanding with this treatment plan and discharge. Differential Diagnosis Differential diagnosis: Likely stable angina Differential diagnosis: headache Medical Records Data Attestation: I reviewed the patient's medical records. Lab Data Attestation: I reviewed the patient's lab results. Result diagrams: 01/16/22 15:11 01/16/22 15:11 Labs: Lab Results 01/16/22 01/16/22 01/16/22 Range/Units 15:11 15:11 15:11 WBC 5.6 (4.8-10.8) X10*3/uL RBC 5.41 (4.60-5.80) X10*6/uL Hgb 14.9 (14.0-18.0) g/dl Hct 44.9 (42.0-52.0) % MCV 83.0 (80.0-98.0) fL MCH 27.5 (27.0-33.0) pg MCHC 33.2 (31.0-36.0) g/dl RDW 13.0 (11.0-16.0) % Plt Count 148 L (160-400) X10*3/uL MPV 11.4 (9.4-12.4) fL Immature Gran % (Auto) 0.2 (0.0-0.4) % Neut % (Auto) 63.8 (45-73) % Lymph % (Auto) 26.1 (20-40) % [place] % (Auto) 8.0 (2-11) % Eos % (Auto) 1.4 (0-4) % Baso % (Auto) 0.5 (0-2) % Lymph # (Auto) 1.5 (1.2-4.9) X10*3/uL [place] # (Auto) 0.5 (0.1-1.2) X10*3/uL Eos # (Auto) 0.1 (0.0-0.4) X10*3/uL Baso # (Auto) 0.0 (0.0-0.2) X10*3/uL Abs Immat Gran (auto) 0.01 (0.00-0.03) X10*3/uL Absolute Neuts (auto) 3.6 (2.0-8.3) x10*3/uL Absolute Nucleated RBC 0.000 (0.0-0.012) X10*3/uL Nucleated RBC % (auto) 0.0 (0.0-0.2) /100WBC Sodium 138 (135-145) mmol/L Potassium 4.0 (3.3-5.1) mmol/L Chloride 107 (96-108) mmol/L Carbon Dioxide 24 (22-29) mmol/L Anion Gap 11 L (12-20) BUN 11 (9-16) mg/dL Creatinine 0.71 (0.5-1.4) mg/dL Estim Creat Clear Calc 155.6 Estimated GFR > 60 Random Glucose 91 (60-115) mg/dL Calcium 8.9 (8.4-10.2) mg/dL Total Bilirubin 0.5 (0.0-1.0) mg/dL AST 54 H (5-37) U/L ALT 63 H (0-40) U/L Alkaline Phosphatase 71 (39-117) U/L Troponin I High Sens < 3.5 (<3.5-35.0) ng/L B-Natriuretic Peptide (<100) pg/mL Total Protein 7.6 (6.5-8.0) g/dL Albumin 4.4 (3.5-5.0) g/dL COVID-19 ([facility]) (Negative) COVID-19 Clin Com 01/16/22 01/16/22 Range/Units 15:11 15:11 WBC (4.8-10.8) X10*3/uL RBC (4.60-5.80) X10*6/uL Hgb (14.0-18.0) g/dl Hct (42.0-52.0) % MCV (80.0-98.0) fL MCH (27.0-33.0) pg MCHC (31.0-36.0) g/dl RDW (11.0-16.0) % Plt Count (160-400) X10*3/uL MPV (9.4-12.4) fL Immature Gran % (Auto) (0.0-0.4) % Neut % (Auto) (45-73) % Lymph % (Auto) (20-40) % [place] % (Auto) (2-11) % Eos % (Auto) (0-4) % Baso % (Auto) (0-2) % Lymph # (Auto) (1.2-4.9) X10*3/uL [place] # (Auto) (0.1-1.2) X10*3/uL Eos # (Auto) (0.0-0.4) X10*3/uL Baso # (Auto) (0.0-0.2) X10*3/uL Abs Immat Gran (auto) (0.00-0.03) X10*3/uL Absolute Neuts (auto) (2.0-8.3) x10*3/uL Absolute Nucleated RBC (0.0-0.012) X10*3/uL Nucleated RBC % (auto) (0.0-0.2) /100WBC Sodium (135-145) mmol/L Potassium (3.3-5.1) mmol/L Chloride (96-108) mmol/L Carbon Dioxide (22-29) mmol/L Anion Gap (12-20) BUN (9-16) mg/dL Creatinine (0.5-1.4) mg/dL Estim Creat Clear Calc Estimated GFR Random Glucose (60-115) mg/dL Calcium (8.4-10.2) mg/dL Total Bilirubin (0.0-1.0) mg/dL AST (5-37) U/L ALT (0-40) U/L Alkaline Phosphatase (39-117) U/L Troponin I High Sens (<3.5-35.0) ng/L B-Natriuretic Peptide < 10 (<100) pg/mL Total Protein (6.5-8.0) g/dL Albumin (3.5-5.0) g/dL COVID-19 ([facility]) Negative (Negative) COVID-19 Clin Com See Note Imaging Data Chest x-ray: Attestation: I personally reviewed and interpreted this imaging study as follows: My impression: No acute process. Radiologist's impression: EXAMINATION: XR CHEST CLINICAL INFORMATION: Shortness of breath COMPARISON: 05/25/2021 TECHNIQUE: 2 views of the chest were obtained. FINDINGS: No significant abnormality is noted involving the heart, lungs, mediastinum, bony thorax or soft tissues. XR/XR chest 2V IMPRESSION: Unremarkable examination. Dictated By: Ted Burris MD Signed By: Electronically signed by Ted Burris MD 01/16/[address] scan - head: Attestation: I personally reviewed and interpreted this imaging study as follows: My impression: No acute process. Radiologist's impression: EXAMINATION: CT HEAD WITHOUT CONTRAST CLINICAL INFORMATION: Headache. Dizziness.? COMPARISON: CT head 12/17/2021 TECHNIQUE: Contiguous axial imaging was performed from the skull base to vertex without intravenous administration of contrast. This CT examination was performed using dose optimization techniques as appropriate, variously including the following: *Automated exposure control *Adjustment of mA and/or kV according to patient size (this includes techniques or standardized protocols for targeted exams where dose is matched to indication/reason for exam; i.e. extremities or head) *Use of iterative reconstruction technique DLP: 708 mGy-cm FINDINGS: There is no evidence of acute intracranial hemorrhage or territorial infarction. No abnormal mass effect or midline shift is seen. Ignacio to white matter differentiation is well preserved. No extra-axial fluid collections are identified. The ventricles are normal in size. 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 The osseous structures and soft tissues are normal. The mastoid air cells and visualized portions of the paranasal sinuses are well aerated. Minimal right nasal bone deformity is redemonstrated. ? CT/CT head/brain wo con IMPRESSION: No acute intracranial pathology. Dictated By: Ladonna Khoury MD Signed By: Electronically signed by Ladonna Khoury MD 01/16/22 1513 ECG Data ECG #1: Attestation: I personally reviewed and interpreted this ECG as follows: ECG interpretation date: 01/16/22 ECG interpretation time: 13:02 Prior ECG tracings: available for review Interpretation: Vent. Rate: 075 BPM ? ? Atrial Rate: 075 BPM P-R Int: 164 ms? QRS Dur: 098 ms QT Int: 380 ms ? ? ? P-R-T Axes: 059 039 043 degrees QTc Int: 424 ms ? Normal sinus rhythm with sinus arrhythmia Normal ECG When compared with ECG of 12-JUL-2021 09:55, No significant change was found DD/ 1302 Discharge Plan Discharge Clinical Impression: Headache Patient Disposition: Home, Self-Care Instructions: Acute Headache (ED) Additional Instructions: Follow up with your primary care provider. Return to the emergency department immediately if your symptoms worsen or if you develop any dizziness, shortness of breath, difficulty breathing, chest pain, blurry vision, loss of vision, nausea, vomiting, abdominal pain, fever, chills, back pain, or any other complaints. Prescriptions: No Action benzonatate 100 mg capsule 100 mg PO BID PRN (Reason: cough) Qty: 20 0RF azithromycin [Zithromax Z-Darryl] 250 mg tablet See Rx Instructions .ROUTE .COMPLEX Qty: 6 0RF Rx Instructions: take 500 mg today (day 1), then 250 mg for 4 days (days 2-5) prednisone 20 mg tablet 40 mg PO DAILY Qty: 10 0RF hydrocodone-homatropine [Hycodan] 5-1.5 mg/5 mL (5 mL) syrup 5 ml PO Q6H PRN (Reason: cough) Qty: 60 0RF Referrals: Son Granado MD [Physician] - (Follow up with your PCP. ) Stand Alone Forms: Work/School Release Interventions: ED Discharge Assessment Last Done: 01/16/22 17:02 Discharge Date/Time: 01/16/22 17:04 Print Language: Vietnamese
[2022-01-16 14:57] VITALS: BP 143/97; PULSE 79; RESP 18; TEMP 36.7; O2SAT 98
[2022-01-16 15:17] LABS: MANUAL DIFF FLAG NO
[2022-01-16 15:18] LABS: Basophils Percent Auto 0.5 % (0-2); Eosinophils Absolute Auto 0.1 X10*3/uL (0.0-0.4); Eosinophils Percent Auto 1.4 % (0-4); Hematocrit 44.9 % (42.0-52.0); Hemoglobin 14.9 g/dl (14.0-18.0); Imm Gran Abs Auto 0.01 X10*3/uL (0.00-0.03); Imm Gran Pct Auto 0.2 % (0.0-0.4); Lymphocytes Absolute Auto 1.5 X10*3/uL (1.2-4.9); Lymphocytes Percent Auto 26.1 % (20-40); Mean Corpuscular HGB Conc 33.2 g/dl (31.0-36.0); Mean Corpuscular Hemoglobin 27.5 pg (27.0-33.0); Mean Platelet Volume 11.4 fL (9.4-12.4); Monocytes Absolute Auto 0.5 X10*3/uL (0.1-1.2); Neutrophils Absolute Auto 3.6 x10*3/uL (2.0-8.3); Neutrophils Percent Auto 63.8 % (45-73); Platelet Count 148 X10*3/uL (160-400); Red Blood Count 5.41 X10*6/uL (4.60-5.80); White Blood Count 5.6 X10*3/uL (4.8-10.8)
[2022-01-16 15:36] LABS: COVID-19 Test Negative (Negative)
[2022-01-16] MEDS: Ketorolac Tromethamine 15 MG/ML VIAL IM (15:39)
[2022-01-16 15:41] LABS: Alanine Aminotransferase 63 U/L (0-40); Albumin Level 4.4 g/dL (3.5-5.0); Alkaline Phosphatase 71 U/L (39-117); Anion Gap 11 (12-20); Aspartate Amino Transferase 54 U/L (5-37); Bilirubin Total 0.5 mg/dL (0.0-1.0); Blood Urea Nitrogen 11 mg/dL (9-16); Calcium 8.9 mg/dL (8.4-10.2); Carbon Dioxide 24 mmol/L (22-29); Chloride 107 mmol/L (96-108); Creatinine Clr Calc Pharmacy 155.6; Estimated Glomerular Filt Rate > 60; Glucose Random 91 mg/dL (60-115); Sodium 138 mmol/L (135-145); Total Protein 7.6 g/dL (6.5-8.0)
[2022-01-16 15:45] LABS: B Type Natriuretic Peptide < 10 pg/mL (<100); Troponin-I High Sensitivity < 3.5 ng/L (<3.5-35.0)
[2022-01-16 17:00] VITALS: BP 151/96; PULSE 71; RESP 18; TEMP 36.5; O2SAT 98
== END 2022-01-16 17:04 | disposition home or self-care (01) ==
PROVIDERS: Physician Assistant Medical; Emergency Provider Student in an Organized Health Care Education/Training Program
DX: R51.9 Headache, unspecified (principal); R07.89 Other chest pain; Z20.822 Contact with and (suspected) exposure to COVID-19; F17.200 Nicotine dependence, unspecified, uncomplicated; Z72.89 Other problems related to lifestyle; Z56.6 Other physical and mental strain related to work
CPT/HCPCS: 36415; 70450; 71046; 80053; 83880; 84484; 85025; 87635; 93005; 96372; 99284; J1885

== ENCOUNTER 2022-07-25 17:56 | Emergency (ER) | payer MEDICAID, SELFPAY ==
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
[2022-07-25 18:10] VITALS: BP 164/95; PULSE 88; RESP 18; TEMP 36.8; O2SAT 97; BMI 34.4
[2022-07-25 18:34] LABS: COVID-19 Test Positive (Negative); IDNOW Serial# 16C4AD1C
[2022-07-25 19:06] LABS: Influenza A PCR NEGATIVE (Negative); Influenza B PCR NEGATIVE (Negative); Resp Syncy Virus RNA Qual PCR NEGATIVE (Negative); SARS COV2 PCR INHOUSE POSITIVE (Negative)
== END 2022-07-25 18:58 | disposition home or self-care (01) ==
PROVIDERS: Nurse Practitioner Family; Emergency Provider Internal Medicine
DX: U07.1 COVID-19 (principal); R03.0 Elevated blood-pressure reading, without diagnosis of hypertension; Z79.899 Other long term (current) drug therapy
CPT/HCPCS: 0241U; 87635; 99282

== ENCOUNTER 2022-09-03 21:28 | Emergency (ER) | payer MEDICAID, SELFPAY ==
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
[2022-09-03 21:45] VITALS: BP 122/78; BP 162/102; PULSE 84; PULSE 86; RESP 16; O2SAT 97; O2SAT 98; BMI 36.8
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
== END 2022-09-04 00:36 ==
PROVIDERS: Emergency Provider Emergency Medicine; PCP Internal Medicine
DX: S20.219A Contusion of unspecified front wall of thorax, initial encounter (principal); V49.40XA Driver injured in collision with unspecified motor vehicles in traffic accident, initial encounter; Y92.9 Unspecified place or not applicable; F10.90 Alcohol use, unspecified, uncomplicated
CPT/HCPCS: 70450; 71045; 72125; 99284

== ENCOUNTER 2024-12-08 14:03 | Emergency (ER) | payer MEDICAID, SELFPAY ==
--- NOTE | 2024-12-08 14:05 | ECG_ITS ---
Test Reason : ches pain Blood Pressure : */* mmHG Vent. Rate : 88 BPM Atrial Rate : 88 BPM P-R Int : 160 ms QRS Dur : 98 ms QT Int : 376 ms P-R-T Axes : 42 -12 29 degrees QTcB Int : 454 ms Normal sinus rhythm Normal ECG When compared with ECG of 16-Jan-2022 13:02, No significant change was found Referred By: Sil Cyr Electronically Signed By: NANDO FISCHER MD
[2024-12-08 14:21] VITALS: BP 122/82; PULSE 90; RESP 18; TEMP 36.7; O2SAT 98; BMI 42.1
[2024-12-08 14:23] VITALS: BP 122/82; PULSE 90; RESP 18; TEMP 36.7; O2SAT 98
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
--- NOTE | 2024-12-08 14:37 | PC.NURSE ---
Pt comes to ED today with c/o chest pain this AM and heavy breathing while walking. Pt reports his father has a cardiac hx and felt is was necessary to be seen for his sxs. EKG performed at bedside and VS obtained. ED Provider at bedside for discussion of plan of care: blood working--including 2 troponins two hours apart. Pt adamantly declines to complete blood work. He states he has somewhere else to be at 4pm and will not be able to wait for the results and will leave without completing his full workup. ED provider reviews in depth with Pt on the importance of the required workup in order r/o any major medical concerns. Pt states x2 that he will not complete the workup. ED provider advises Pt he will be leaving AMA and Pt in agreement with this plan. D/C paperwork provided to Pt. AMA signature obtained.
[2024-12-08 14:45] VITALS: BP 122/82; PULSE 90; RESP 18; TEMP 36.7; O2SAT 98
== END 2024-12-08 14:46 | disposition left against medical advice (07) ==
PROVIDERS: Emergency Provider Emergency Medicine
DX: R07.9 Chest pain, unspecified (principal); Z53.29 Procedure and treatment not carried out because of patient's decision for other reasons
CPT/HCPCS: 93005; 99283; 99285

== ENCOUNTER → 2024-12-08 14:05 | Outpatient (BNV) | payer MEDICAID, SELFPAY | PROVIDERS: Emergency Provider Emergency Medicine; Visit Provider Internal Medicine Cardiovascular Disease | DX: R07.9 Chest pain, unspecified (principal) | CPT/HCPCS: 93010 ==

== ENCOUNTER 2025-06-13 11:42 | Emergency (ER) | payer MEDICAID, SELFPAY ==
--- NOTE | ~2025-06-13 | XR_ITS ---
EXAMINATION: XR KNEE 3 VIEWS LEFT HISTORY: pain COMPARISON: There are no prior studies available for comparison. FINDINGS: Five views of the left knee are submitted. Osseous mineralization is normal. There is no fracture or dislocation. The joint spaces are preserved. The soft tissues are unremarkable. There is no joint effusion. XR/XR knee LT 3V IMPRESSION: Unremarkable examination of the left knee. Electronically signed by: Oniel Peck MD 06/13/2025 12:21 PM [facility]
--- NOTE | ~2025-06-13 | XR_ITS ---
EXAMINATION: XR SHOULDER, RIGHT CLINICAL INFORMATION: pain COMPARISON: None available. TECHNIQUE: AP external rotation, Grashey, scapular Y, and axillary views of the right shoulder. FINDINGS: The bones and soft tissues are normal. No fracture. Glenohumeral and acromioclavicular alignment is anatomic with normal joint space. No abnormal soft tissue calcifications. XR/XR shoulder RT min 2V IMPRESSION: Unremarkable right shoulder. Electronically signed by: Haile Anguiano MD 06/13/2025 12:20 PM [facility]
[2025-06-13 11:50] VITALS: BP 152/108; PULSE 80; RESP 16; TEMP 36.6; O2SAT 98; BMI 36.3
--- NOTE | 2025-06-13 11:51 | ED.GENADULT ---
HPI - General Adult General Chief complaint: Extremity Problem Stated complaint: shoulder & knee injury Time Seen by Provider: 06/13/25 12:41 Source: patient and RN notes reviewed Mode of arrival: ambulatory Limitations: no limitations History of Present Illness ED Provider: Christine Posadas PA-C HPI narrative: This is a 44-year-old male who presents emergency department with concerns of left knee pain and right shoulder pain. Patient states that he performs heavy lifting at work, and does do manual labor at work. He states that he twisted his left knee and felt a popping sensation 1 week ago. He also states while he was pulling a heavy machine he felt pain in a popping sensation in his right shoulder. He denies former injury to these areas in the past. No numbness or tingling. No chest pain or shortness for breath. No other complaints or concerns at this time. MD complaint: Right shoulder pain, left knee pain Onset (ago): day(s) Relieving factors: none Exacerbating factors: none Associated symptoms: denies other symptoms Treatments prior to arrival: none Related Data Previous Rx's ?Medication ?Instructions ?Recorded azithromycin 250 mg tablet See Rx Instructions PO .COMPLEX #6 03/29/21 (Zithromax Z-Darryl) tabs hydrocodone-homatropine 5 mg-1.5 5 ml PO Q6H PRN cough #60 mL 03/29/21 mg/5 mL (5 mL) oral solution (Hycodan) prednisone 20 mg tablet 40 mg (2 x 20 mg) PO DAILY #10 tabs 03/29/21 benzonatate 100 mg capsule 100 mg PO BID PRN cough #20 caps 07/12/21 Allergies Allergy/AdvReac Type Severity Reaction Status Date / Time No Known Allergies (No Known Allergy Verified 06/13/25 11:53 Allergies*) Review of Systems Review of Systems: Constitutional : No Fever, No Chills ENT/Mouth : No sore throat, No Rhinorrhea Eyes: No Eye Pain, No Swelling, No Redness Cardiovascular : No Chest Pain, No SOB Respiratory : No Cough, No Sputum Gastrointestinal : No Nausea, No Vomiting, No Diarrhea, No abdominal Pain Genitourinary : No Dysuria, No Hematuria Musculoskeletal : + joint pain, No Myalgias, No Joint Swelling Skin : No Skin Lesions Neuro : No Weakness, No Numbness, No Headache All other systems reviewed and are negative Yes all other systems are reviewed and are negative Constitutional: Constitutional: Reports as per [facility] Past Medical History Medical History No known health problems Social History Social History Alcohol intake: current Alcohol intake frequency: 0-2 drinks per day Alcohol type: beer Patient Tobacco Use Status: Current everyday Tobacco user Advance Directives: Yes Advance Directives on File: Yes Advance Directives Date on File: 01/16/22 Physical Exam ED Exam Exam: General: Awake, alert, and oriented X3. No acute distress. HEENT: Normal inspection CVS: Normal heart rate and rhythm. Pulses normal. Respiratory: No respiratory distress Skin: Warm, dry, no rashes noted to exposed skin. Normal skin color. Normal skin turgor. Extremities: Left knee with no obvious bony deformity or swelling. He does have tenderness palpation along the lateral joint line. Full ROM. No overlying skin changes or warmth. Right shoulder with no obvious bony deformity or swelling. Tenderness palpation along the right AC. Strong radial pulse. Able to abduct to approximately 70?. Able to forward flex to approximately 100? Neuro: Oriented X 3. No motor deficit. No sensory deficit. Vital Signs: Vital Signs - 24 hr 06/13/25 11:50 Temperature 98 F Pulse Rate 80 Respiratory Rate 16 Blood Pressure 152/108 H Pulse Oximetry 98 Oxygen Delivery Method Room Air BMI result Body Mass Index 36.3 Medical Decision Making Medical Decision Making MDM Narrative: This is a 44-year-old male who presents emergency department with complaints of left knee pain and right shoulder pain status post work related injury. On arrival, patient's blood pressure elevated at 152/108, all other vital signs within normal limits. Left knee revealing no acute findings on x-ray, shoulder x-ray also reviewed as no acute findings. Discussed with patient that we are unable to rule out any ligament or tendon injury therefore he needs follow-up with Orthopedics. Patient placed in a left knee hinged brace, he refused crutches. Discussed gentle range of motion. Discussed strict return precautions, he understands and agrees with plan. Patient stable for discharge. Differential Diagnosis Differential Diagnoses: The differential diagnosis associated with the presentation includes Sprain, strain, ligament injury, fracture, contusion, fracture Radiology Impression Discussion of test interpretation with radiology: I have reviewed the radiologist's reading. Radiologist Impression: HISTORY: pain COMPARISON: There are no prior studies available for comparison. FINDINGS: Five views of the left knee are submitted. Osseous mineralization is normal. There is no fracture or dislocation. The joint spaces are preserved. The soft tissues are unremarkable. There is no joint effusion. XR/XR knee LT 3V IMPRESSION: Unremarkable examination of the left knee. Electronically signed by: Oniel Peck MD 06/13/2025 12:21 PM EST RP Dictated By: Oniel Peck MD COMPARISON: None available. TECHNIQUE: AP external rotation, Grashey, scapular Y, and axillary views of the right shoulder. FINDINGS: The bones and soft tissues are normal. No fracture. Glenohumeral and acromioclavicular alignment is anatomic with normal joint space. No abnormal soft tissue calcifications. XR/XR shoulder RT min 2V IMPRESSION: Unremarkable right shoulder. Electronically signed by: Haile Anguiano MD 06/13/2025 12:20 PM EST RP Dictated By: Haile Anguiano MD Discharge Plan Discharge Clinical Impression: Strain of left knee, Sprain of right shoulder Patient Disposition: Home, Self-Care Instructions: Knee Sprain (ED), Shoulder Sprain (ED), Hinged Knee Brace (ED) Additional Instructions: You were seen in the emergency department after injuring your left knee and right shoulder. Your xrays do not show any injuries to your bones, however we are unable to rule out any ligament or tendon issue therefore please follow-up with the hearing specialist. Take ibuprofen 600 milligrams every 6 hours, 2 hours later, take Tylenol a 1000 milligrams (take every 8 hours). This will help provide you with good pain relief. Please wear knee brace for support. Gentle range of motion is very important. Rest, ice, and elevate. If any new or worsening symptoms occur including but not limited to chest pain or shortness of breath, please seek emergent care. Prescriptions: No Action benzonatate 100 mg capsule 100 mg PO BID PRN (Reason: cough) Qty: 20 0RF azithromycin [Zithromax Z-Darryl] 250 mg tablet See Rx Instructions .ROUTE .COMPLEX Qty: 6 0RF Rx Instructions: take 500 mg today (day 1), then 250 mg for 4 days (days 2-5) prednisone 20 mg tablet 40 mg PO DAILY Qty: 10 0RF hydrocodone-homatropine [Hycodan] 5-1.5 mg/5 mL (5 mL) syrup 5 ml PO Q6H PRN (Reason: cough) Qty: 60 0RF Referrals: [facility] [place] Orthopedic Surgeons [Provider Group] Stand Alone Forms: Work/School Release Discharge Date/Time: 06/13/25 13:36 Print Language: Bur[place]ian
--- OUTSIDE RECORDS SUMMARY | 2025-06-13 16:43 | XMS_ITS | Clinical Summary ---
Author Organization [facility] Address [address] [place], [place] [id number] Phone Care Team Providers Care Project Specialist Name Role Phone Pcp, Unknown Primary Care Provider Unavailabl e Social History Tobacco Use Types Packs/Day Years Used Date Smoking Tobacco: Never Assessed Education Answer Date Recorded Are you interested in more education? Not on sher e 10/23/2022 Are you concerned about learning? Not on file 10/23/2022 No 10/23/2022 No 10/23/2022 Digital Access Answer Date Recorded No 11/23/2022 No 11/23/2022 Reliable internet access at home? Not on file 11/23/2022 Device with a working camera? Not on file Sex and Gender Information Value Date Recorded Sex Assigned at Not on file Legal Sex Male 12:28 PM EST Gender Identity Not on file Sexual Orientation Not on file Plan of Treatment Health Maintenance Due Date Last Done Comments LIPID PANEL 1981 DEPRESSION SCREENING 1993 SMOKING Hx and SMOKELESS TOBACCO SCREENING 1994 HEPATITIS C SCREENING 12/29/1999 HIV ONE-TIME SCREENING (18-65 YEARS) 12/29/1999 INFLUENZA VACCINE (#1) 2025 COVID-19 VACCINE ( season) 2025 04/13/2022, 06/13/2021, 11/14/2020, Additional history exists Adult Td,Tdap Booster 12/18/2031 12/17/2021 HEPATITIS A VACCINES Aged Out No long er eligible based on patient's age to complete this topic HIB VACCINES Aged Out No longer eligi ble based on patient's age to complete this topic MENINGOCOCCAL VACCINES (ACWY) Aged Out No longer eligible based on patient's age to complete this topic MENINGOCOCCAL VACCINES (B) Aged Out N o longer eligible based on patient's age to complete this topic PNEUMOCOCCAL VACCINES (0-49 years) Aged Out No longer eligible based on patient's age to complete this topic Medical Devices Not on file [place] [address] [place] [address] [place] [address] [facility] Care Teams Project Specialist Relationship Specialty Start Date End Date Pcp, Unknown PCP - General 05/28/22 Additional Source Comments The information contained in this document represents components of the legal health record. It is not the complete legal health record.[facility]
--- OUTSIDE RECORDS SUMMARY | 2025-06-13 16:43 | XMS_ITS | Clinical Summary ---
Author Organization [employer] Address [address] [place] [address] Care Team Providers Care Kennel Supervisor Name Role Phone Unavailable Primary Care Provider Unavailabl e Social History Tobacco Use Types Packs/Day Years Used Date Smoking Tobacco: Never Assessed Sex and Gender Information Value Date Recorded Sex Assigned at Not on file Legal Sex Male 2:46 AM EDT Gender Identity Not on file Sexual Orientation Not on file Plan of Treatment Health Maintenance Due Date Last Done Comments Depression Screening 1981 HIV Screening 1981 Lipid Panel 1981 SDOH Screening 1981 Disability Screening 1981 Alcohol/Substance Use Screening 1993 Tobacco Screening 1993 Family Planning (PISQ) 1996 HPV Vaccines (1 - Male 3-dos e series) 1996 Hepatitis C Screening 12/29/1999 DTaP/Tdap/Td Vaccines (1 - Tdap) 2000 Hepatitis B Vaccines (1 of 3 - 19+ 3-dose series) 2000 COVID-19 Vaccine (1 - 2024-2 6 season) 2025 Influenza Vaccine (#1) 2025 Zoster Vaccines (1 of 2) 12/29/2031 RSV Patients and Pa tients Aged 60 years or older (1 - 1-dose 75+ series) 2056 HIB Vaccines Aged Out No longer eligi ble based on patient's age to complete this topic Hepatitis A Vaccines Aged Out No long er eligible based on patient's age to complete this topic IPV Vaccines Aged Out No longer eligi ble based on patient's age to complete this topic Meningococcal B Vaccine Aged Out No l onger eligible based on patient's age to complete this topic Meningococcal Vaccine Aged Out No micaela zander eligible based on patient's age to complete this topic Pneumococcal Vaccine: Pediat rics (0 to 5 Years) and At-Risk Patients (6 to 49) Years Aged Out No longer eligible b ased on patient's age to complete this topic RSV under 20 months Aged Out No longe r eligible based on patient's age to complete this topic Rotavirus Vaccines Aged Out No longer eligible based on patient's age to complete this topic
--- OUTSIDE RECORDS SUMMARY | 2025-06-13 16:43 | XMS_ITS | Clinical Summary ---
Author Organization [facility] it[facility] Address [address] [place] [address] Care Team Providers Care System Auditor Name Role Phone Silvina Farris DO Primary Care Provider [phone] Social History Tobacco Use Types Packs/Day Years Used Date Smoking Tobacco: Never Assessed Sex and Gender Information Value Date Recorded Sex Assigned at Not on file Legal Sex Male 6:26 PM EST Gender Identity Not on file Sexual Orientation Not on file Plan of Treatment Health Maintenance Due Date Last Done Comments DTaP,Tdap,and Td Vaccines (1 - Tdap) 2000 Hepatitis B Vaccines (1 of 3 - 19+ 3-dose series) 2000 HPV Vaccines (1 - 3-dose SCD M series) 2008 Depression Screening 06/27/2024 COVID-19 Vaccine ( - 2024-2 6 season) 2025 Influenza Vaccine (#1) 2025 RSV Immunization Adult Patie nts (1 - 1-dose 75+ series) 2056 HIB Vaccines Aged Out No longer eligi ble based on patient's age to complete this topic Hepatitis A Vaccines Aged Out No long er eligible based on patient's age to complete this topic IPV Vaccines Aged Out No longer eligi ble based on patient's age to complete this topic MMR Vaccines Aged Out No longer eligi ble based on patient's age to complete this topic Meningococcal ACWY Vaccine Aged Out N o longer eligible based on patient's age to complete this topic Meningococcal B Vaccine Aged Out No l onger eligible based on patient's age to complete this topic Pneumococcal Vaccine: Pediat rics (0 to 5 Years) and At-Risk Patients (6 to 49 Years) Aged Out No longer eligible b ased on patient's age to complete this topic RSV Immunization Patients Un edward 20 months Aged Out No longer eligible b ased on patient's age to complete this topic Varicella Vaccines Aged Out No longer eligible based on patient's age to complete this topic Care Teams System Auditor Relationship Specialty Start Date End Date Silvina Farris DO PCP - General Internal Medicine 07/24/21
== END 2025-06-13 13:36 | disposition home or self-care (01) ==
PROVIDERS: Emergency Provider Emergency Medicine Emergency Medical Services
DX: S86.812A Strain of other muscle(s) and tendon(s) at lower leg level, left leg, initial encounter (principal); S46.911A Strain of unspecified muscle, fascia and tendon at shoulder and upper arm level, right arm, initial encounter; X50.9XXA Other and unspecified overexertion or strenuous movements or postures, initial encounter; Y93.89 Activity, other specified; Y92.59 Other trade areas as the place of occurrence of the external cause; Y99.0 Civilian activity done for income or pay
CPT/HCPCS: 73030; 73562; 99281; 99283

== ENCOUNTER → 2025-06-13 11:52 | Outpatient (BNV) | payer MEDICAID, SELFPAY | PROVIDERS: Visit Provider Radiology Diagnostic Radiology | DX: M25.562 Pain in left knee (principal); M25.511 Pain in right shoulder | CPT/HCPCS: 73030; 73562 ==